=== PATIENT | male | born 1955 | race Caucasian/White ===

== ENCOUNTER → 2016-11-10 | Outpatient (CLI) | payer MEDICARE ==
[~2016-11-10] MED LIST: CARV-39 PO; HYDR-3237 PO; LISI40TA PO; RIVA15TA PO
== END | disposition home or self-care (01) ==
LOC: CFH 11:58
PROVIDERS: ATTEND Internal Medicine
DX: E27.9 Disorder of adrenal gland, unspecified (principal); J84.10 Pulmonary fibrosis, unspecified; N28.1 Cyst of kidney, acquired; N28.9 Disorder of kidney and ureter, unspecified; I10 Essential (primary) hypertension; D75.1 Secondary polycythemia; M25.579 Pain in unspecified ankle and joints of unspecified foot
CPT/HCPCS: 74150